=== PATIENT | female | born 1965 | race African-American/Black ===

== ENCOUNTER 2020-06-02 08:27 | Day surgery (SDC) | payer BC, OTHER ==
[2020-05-25 09:35] VITALS: BMI 33.3
[2020-06-02] MEDS ORDERED: BUPIVACAINE HCL/PF 0.25% (2.5MG/ML) 10 ML VIAL ONE (10:25)
[2020-06-02] MEDS ORDERED: methylPREDNISolone ACET (DEPO) 40 MG/1 ML VIAL ONE (10:25)
[2020-06-02] MEDS ORDERED: EPINEPHrine 1:1,000 1 MG/1 ML - 30ML VIAL (INJECTION) ONE (10:26)
[2020-06-02] MEDS ORDERED: MIDAZOLAM HCL 2 MG/2 ML SINGLE DOSE VIAL ONE (10:28)
[2020-06-02] MEDS ORDERED: ceFAZolin SODIUM 1 GM VIAL ONE (10:44)
[2020-06-02] MEDS ORDERED: DEXAMETHASONE SOD PHOSPHATE 4 MG/1 ML VIAL ONE (10:44)
[2020-06-02] MEDS ORDERED: ONDANSETRON 4 MG/2 ML VIAL ONE (10:44)
[2020-06-02] MEDS ORDERED: GLYCOPYRROLATE 0.2 MG/1 ML VIAL ONE (10:56)
[2020-06-02] MEDS ORDERED: BUPIVACAINE HCL/PF 0.25% (2.5MG/ML) 10 ML VIAL IJ ONE (11:27)
[2020-06-02] MEDS ORDERED: methylPREDNISolone ACET (DEPO) 40 MG/1 ML VIAL IM ONE (11:27)
--- NOTE | 2020-06-02 11:35 | OP ---
Operative Note - Note: Operative Date: 06/02/20 Pre-Operative Diagnosis: OA R Knee with partial flap tear medial meniscus Operation: Right knee: Surgical arthroscopy. Partial medial meniscectomy. Removal of loose bodies. Shaving chondroplasty medial femoral condyle. 2L NS irrigation. 6cc injection: 5cc Marcaine 0.25%, 1cc depomedrol Findings: Grade 4 chondromalacia patellofemoral joint Grade 4 chondromalacia medial femoral condyle Multiple large medial compartment loose bodies Partial tear posterior horn medial meniscus No tourniquet inflated Post-Operative Diagnosis: Same as Pre-op Surgeon: Torito Neff Spanish Teacher: Hardeep Neff Anesthesiologist/CINDER SNAPPER: Elyse Leslie Anesthesia: General Specimens Removed: Medial compartment loose bodies Estimated Blood Loss (mls): 0 Fluid Volume Replaced (mls): 900 (Crystalloid) Operative Report Dictated: Yes
--- NOTE | 2020-06-02 11:39 | PN ---
Progress Note (short form) - Note Progress Note: 54F s/p surgical arthroscopy RIGHT knee w/removal of loose bodies, partial medial meniscectomy, medial femoral condyle chondroplasty POD #0. -Pain control: per anaesthesia team; NSAID's; percocet & Duexis sent to patient's pharmacy. -DVT PPx: - Mechanical: FREDO's, SCD's. -Incentive spirometry. -PT/OT/Rehab, OOB. -WBAT RLE. -Cane/crutches as needed. -Diet as tolerated. -Keep dressing clean & dry; d/c dressing on Friday, place waterproof Band-Aid's over incisions, then OK to resume showering. -Discharge planning: f/u [facility] [employer] office 7-10 days; call for appointment; . -Will follow. Torito Neff MD (Orthopaedic Surgery).
[2020-06-02] MEDS ORDERED: IBUPROFEN 800 MG/8 ML IJ IVPB PRN (11:42)
[2020-06-02] MEDS ORDERED: PROMETHAZINE HCL 25 MG/1 ML VIAL IVPUSH PRN (11:42)
[2020-06-02] MEDS ORDERED: ONDANSETRON 4 MG/2 ML VIAL IVPUSH PRN (11:42)
[2020-06-02] MEDS ORDERED: LACTATED RINGERS SOLUTION 1,000 ML IV SCH (11:45)
[2020-06-02] MEDS ORDERED: IBUPROFEN 800 MG/8 ML IJ IVPB ONE (11:57)
[2020-06-02] MEDS ORDERED: ACETAMINOPHEN 1000 MG/100 ML VIAL (NON FORMULARY) IVPB ONE (12:00)
[2020-06-02 12:36] VITALS: TEMP 97.8
[2020-06-02 13:14] VITALS: BP 120/72; PULSE 74
--- NOTE | 2020-06-02 14:54 | OP ---
DATE OF OPERATION: 06/02/2020 SURGEON: Torito Neff MD PLATINUMSMITH: Hardeep Neff MD PREOPERATIVE DIAGNOSIS: Osteoarthritis, right knee, with mechanical derangement, possible loose body, possible flap medial meniscal tear. POSTOPERATIVE DIAGNOSIS: Tricompartment osteoarthritis knee with associated degenerative flap tear, medial meniscus, impinging between femoral condyle and tibial plateau. ANESTHESIA: Spinal anesthesia with conscious sedation and peripheral nerve block. PROCEDURE: 1. Arthroscopy, right knee. 2. Partial medial meniscectomy. (84168) 3. Shaving chondroplasty medial femoral condyle. 4. Removal of loose bodies. OPERATION DETAILS: The patient correctly identified, brought to the operating room, right lower extremity prepped, draped in routine manner with Betadine scrub solution, wiped off with alcohol, DuraPrep applied. With patient in supine position, the knee flexed at 90 degrees with the use of a lateral post samayoa, a standard anterolateral portal was performed. The arthroscopic instrumentation introduced into the knee revealed the presence of a diffuse low-grade synovitis throughout the knee. Multiple loose fragments seen floating within the confines of the joint. These were readily washed out. The retropatellar surface on the medial side revealed the presence of Outerbridge level 4 changes, that is, eburnated bone. The surrounding cartilage to this lesion was Outerbridge level 3. The trochlear groove was significantly arthritic, extending all the way down to intercondylar notch, Outerbridge level 3 changes noted. The medial femoral condyle was normal up until the flexion component of the articulation where there was complete denudation of cartilage and exposed bone. The actual joint itself revealed a posterior attached flap tear which was degenerate, and with no difficulty, using a meniscal grasper, this was grabbed and delivered free of the joint. Using a 4.5 shaver, the remaining meniscus was trimmed appropriately down to smooth edge, leaving a significant amount of meniscus in situ. This was left well alone. The edges of the cartilage surrounding the denuded bone were flattened and shaved to a stable situation using a 4.5 shaver. The intercondylar notch was then inspected. The anterior cruciate ligament was floppy and abnormal. It was folded on itself. Passing a hook around the cruciate ligament and pulling it to the side, good visualization of the PCL was achieved, which was an unusual finding. The lateral compartment was entered. The joint was far more healthy. The meniscus was intact. The lateral femoral condyle, tibial plateau were normal, but the medial osteophyte that was seen on the peripheral margin of the femur on the medial side extended up over to the region of the trochlear groove and down the lateral side of the femur, indicating tricompartment osteoarthritis. The knee was thoroughly lavaged. The portals were closed with 3-0 nylon. It must be noted that the instrumentation for the arthroscopic procedure was brought into the joint through and anteromedial portal. No complications. The joint was instilled with Marcaine and steroid. Patient will be seen in the office postoperatively. MD JENA Wade/[id number] MTDD
--- NOTE | 2020-06-07 16:43 | PATH ---
Surgical Pathology Report Patient Name: CINTHIA WELCH [facility]. Rec. #: [id number] /Age/Gender: 1965 (Age: 54) / F Account: [id number] Location: [facility] Taken: 06/02/2020 Received: 06/02/2020 Reported: 06/07/2020 Physicians: Torito Neff M.D. Specimen(s) Received MENISCAL LOOSE BODY RIGHT KNEE Clinical History Right knee internal Final Diagnosis MENISCAL LOOSE BODY, KNEE, RIGHT, ARTHROPLASTY: ROUND BODIES CONSISTENT OF BENIGN CARTILAGE CONSISTENT WITH LOOSE BODIES. Electronically Signed Jaja Sparks M.D. Gross Description Received in formalin labeled "meniscal loose body right knee," is a 1.1 x 0.5 x 0.1 cm rosado portion of cartilage. The specimen is submitted in toto in one cassette. /06/06/2020 [facility]06/06/2020
== END 2020-06-02 13:10 | disposition home or self-care (01) ==
LOC: FASU 08:27
PROVIDERS: ATTEND Orthopaedic Surgery Orthopaedic Surgery of the Spine
PROC: 0SBC4ZZ Excision of Right Knee Joint, Percutaneous Endoscopic Approach (ICD-10-PCS; 2020-06-02)
PROC: 0SBD4ZZ Excision of Left Knee Joint, Percutaneous Endoscopic Approach (ICD-10-PCS; principal; 2020-06-02 11:08)
DX: S83.241A Other tear of medial meniscus, current injury, right knee, initial encounter (principal); X58.XXXA Exposure to other specified factors, initial encounter; Y93.9 Activity, unspecified; Y92.9 Unspecified place or not applicable
CPT/HCPCS: 29881; G0289; 88304-TC; 94760